=== PATIENT | male | born 1990 | race African-American/Black ===

== ENCOUNTER 2016-10-11 20:10 | Emergency (ER) | payer BC, OTHER ==
[~2016-10-11] VITALS: Ht 167.6 cm; Wt 68.0 kg
[~2016-10-11 20:10] MED LIST: IBUPROFEN 800800 MG PO; NOHOMEMEDICATIONS; ZOFRAN ODT4 MG PO
[2016-10-11] MEDS ORDERED: BLEPH-105 ML OPHTHALMIC (20:43)
[2016-10-11 20:44] VITALS: BP 110/54
== END 2016-10-11 20:44 | disposition home or self-care (01) ==
LOC: ER 20:10
DX: B99.9 Unspecified infectious disease (principal); H10.89 Other conjunctivitis